=== PATIENT | female | born 1935 | race Caucasian/White ===

== ENCOUNTER 2017-03-16 10:04 | Inpatient (IN) | payer OTHER ==
[2017-03-16] VITALS (9 sets, daily range): BP systolic 103–124; BP diastolic 47–92
[~2017-03-16] VITALS: Ht 162.5 cm; Wt 56.2 kg
--- NOTE | ~2017-03-16 | PR ---
[place], [place] PROGRESS NOTE NAME: ERICA RIBEIRO UNIT #: [id number] ROOM: [facility] DOCTOR: SUZY CHIU MD,LUIS BIRTHDATE: [birth year] DOS: 03/17/2017 SUBJECTIVE: She has been noted comfortable at this time without any distress. She has been noted symptoms of shortness of breath and was given breathing treatments stated reduction and improvement in the respiratory symptoms. The oxygen supplementation has been currently provided by the Venturi mask. She has not been noted with any symptoms of chest pain or any abdominal pain. OBJECTIVE: VITAL SIGNS: Blood pressure noted as 122/65, heart rate of 95 this morning, respiratory rate 20 with normal temperature. HEENT: Shows no acute change. NECK: Supple. CARDIOVASCULAR: S1 and S2, audible. No added sounds. LUNGS: Noted decreased breath sounds in the right lung. The left lung was noted clear. Occasional wheezing was present. ABDOMEN: Soft, nontender. LABORATORY DATA: CBC today in the lab: WBC count 14.4, hemoglobin 9.8, hematocrit 32.0, platelet count 317,000. CMP of the patient on 03/17/2017 noted as glucose 120, normal BUN and creatinine, carbon dioxide 20. IMPRESSION: 1. The patient who has been currently noted with atrial fibrillation with rapid ventricular response. The patient improved. 2. Bronchospasm, the patient with wheezing that has been improving. PLAN OF TREATMENT: No changes in the plan of therapy at this time. Continuation of other previous treatment as in progress. Usual care, other supportive, plan of care and management and therapies as in progress. Usual care. Advanced lung cancer , the patient noted with progressive worsening. LUIS ALMONTE MD CM:PNNEREYDA [id number] LUIS CHIU MD 03/18/175 interface
--- NOTE | ~2017-03-16 | PR ---
[place], [place] PROGRESS NOTE NAME: ERICA RIBEIRO UNIT #: [id number] ROOM: [facility] DOCTOR: LUIS CHÁVEZ MD BIRTHDATE: [birth year] DOS: 03/18/2017 SUBJECTIVE: The patient was independently seen and examined with [id number] encounter. History and physical examination confirmed. Labs were reviewed. Decision made treatment were personally made. The note done by the medical physics professor was approved. The patient has been noted intermittent shortness of breath. The patient's fibrillation with rapid ventricular response, anxiety disorder. She was started on intravenous morphine yesterday because of distress. The patient has been noted progressive advanced malignancy. The patient off lung cancer with atelectasis of the right upper lobe. The patient has been noted comfortable at this time. Hospice Service was supposedly to be seen the patient. PHYSICAL EXAMINATION: VITAL SIGNS: The patient reviewed was noted essentially normal at this time. LUNGS: Auscultation of the chest was noted with decreased breath sounds in the right lung. There were no wheezing or crackles at this time. ABDOMEN: Soft, nontender. LABORATORY DATA: BMP was noted as normal. CBC was noted. WBC count 16.1, mild anemia. IMPRESSION: The patient with progressive lung cancer noted untreated, per the patient wishes with atrial fibrillation, rapid ventricular response. The patient with acute respiratory failure secondary to the above as well. PLAN OF TREATMENT: Recommend the patient for the hospitalist services. ASSESSMENT: Since, the patient opting for any treatment for the lung cancer, which has been known previously based on her wishes. Morphine sulfate should be used. The patient orally or intravenous. To keep the patient in respiratory distress and controlled. Other supportive therapy, plan to be continued previously in place. [place], [place] PROGRESS NOTE NAME: ERICA RIBEIRO UNIT #: [id number] ROOM: [facility] DOCTOR: LUIS CHÁVEZ MD BIRTHDATE: [birth year] LUIS ALMONTE MD CM:PNTRANS [id number] LUIS CHIU MD 03/19/17 0104 interface
--- NOTE | ~2017-03-16 | PR ---
[place], [place] PROGRESS NOTE NAME: ERICA RIBEIRO UNIT #: [id number] ROOM: [facility] DOCTOR: SUZY CHIU MD,LUIS BIRTHDATE: [birth year] DOS: 03/19/2017 ADDENDUM The patient was independently seen to and examined with [id number] encounter. The labs were reviewed. Physical examination performed. Changes in the treatment and recommendations, the patient was personally made for today's visit. The note done by the hospitalist medical director was approved. The patient has been noted with intermittent symptoms of shortness of breath, tachycardia, time receiving morphine intravenously for this patient. The oxygen supplementation continued. The tachycardia with atrial fibrillation and rapid ventricular response has been managed by the Cardiology Services. Chest auscultation noted with decreased breath sounds in the right lung. There were no wheezing or crackles heard. The abdomen is soft, flat, nontender. LABORATORY DATA: CBC that was done this morning showed WBC count was 16,000, mild anemia, platelet count. BMP: Glucose 161, BUN 30, creatinine was normal. Remaining electrolytes grossly normal. IMPRESSION: 1. The patient has progressively advanced lung cancer with progressive atelectasis of the right lung and bronchial obstruction was very likely. 2. Atrial fibrillation with rapid ventricular response or debility with acute hypoxic respiratory failure, leukocytosis. PLAN OF MANAGEMENT: Consideration for the hospitalist services. Continue maximizing medical ____ atrial fibrillation. Continue other supportive plan of therapy and care as in progress without any other changes. Her prognosis remains poor. LUIS ALMONTE MD CM:PNTRANS [phone] LUIS CHIU MD 03/20/17 0238 interface
--- NOTE | ~2017-03-16 | CON ---
[place], [place] REPORT OF CONSULTATION NAME: ERICA RIBEIRO UNIT #: [id number] ROOM: [facility] DOCTOR: SUZY CHIU MD,LUIS BIRTHDATE: [birth year] DOS: 03/16/2017 PULMONARY CONSULTATION EVALUATION REASON FOR CONSULTATION: Assess the patient's symptoms of shortness of breath. HISTORY OF PRESENT ILLNESS: An 81-year-old white female who has been known once the patient during hospitalization in the past. The patient has been brought to the hospital by the family members as the patient was noted with symptoms of increased shortness of breath. The shortness of breath has been noted to be increased for the patient gradually. She was also complaining of generalized fatigue. Somehow the symptoms, the patient has been gradually deteriorating in the past couple of months. The patient reported as severe nonproductive cough as well. There were symptoms of hemoptysis. Shortness of breath with minimal exertion at this time. She denies any symptoms of wheezing. She does complain of pain, which were described in the left anterior portion of the chest wall for the patient recently. The patient presented to the hospital Emergency Room for this patient and noted with atrial fibrillation with rapid ventricular response. The chest x-ray also noted abnormal for the patient on admission. She has been currently admitted to the Intensive Care Unit, the patient for further medical management getting intravenous Cardizem drip. REVIEW OF SYSTEMS: Limited for this patient, CONSTITUTIONAL: Denies symptoms of fatigue and tiredness without fever or chills. EYES: Denies any burning, redness, or tenderness. EARS, NOSE, THROAT SYMPTOMS: No sore throat, hoarseness, otalgia, postnasal drainage or epistaxis. CARDIOVASCULAR: Denies anginal pain, edema or pain of the lower extremities or palpitation at this time. GASTROINTESTINAL: Denies dysphagia, nausea, vomiting, diarrhea or abdominal pain. The patient has been noted with past history of foreign body in the esophagus, which was removed. She has been noted with some weight loss. GENITOURINARY SYMPTOMS: Denies dysuria, suprapubic pain, or hematuria. CENTRAL NERVOUS SYSTEM: Denies dizziness, headache, diplopia or syncopal episodes. She was noted some symptoms of dizziness. SKIN: Denies lesions or rashes. Denies any acute joint pain, redness, or tenderness. Remaining systems were reviewed and they were noted all negative. PAST MEDICAL HISTORY: 1. Hypothyroidism. 2. Bronchial asthma. 3. Gastroesophageal reflux. 4. Atrial fibrillation. 5. Foreign body esophagus. 6. Suspected malignancy for the patient in the right lung for this patient. History was not clear from me for this patient at this time, the patient stated that she had been admitted in [facility] about 3 months ago, she underwent extensive testing for this patient, but does not require any biopsy for this patient from the lung cancer done or not. [place], [place] REPORT OF CONSULTATION NAME: ERICA RIBEIRO UNIT #: [id number] ROOM: [facility] DOCTOR: SUZY CHIU MD,LUIS BIRTHDATE: [birth year] PAST SURGICAL HISTORY: Noted bilateral cataract extraction, lens implantation. The only history was known for this patient in 2015. SOCIAL HISTORY: The patient is , has 4 children. Denies history of alcohol use, illicit drug use. Occupation; occupational pulmonary exposure 20 chemicals, dust or others. FAMILY HISTORY: Both parents have been . MEDICATIONS: Current administered medication patient noted use of intravenous heparin, metoprolol succinate, Cardizem, intravenous drip, Levaquin, morphine and temazepam other p.r.n. medications administration. DRUG ALLERGIES: NOTED WITH ALLERGY TO THE ASPIRIN AND CAFFEINE. PHYSICAL EXAMINATION: GENERAL: An 81-year-old female who has been currently noted awake and alert without any distress. VITAL SIGNS: The patient's height was recorded by the nursing staff on current admission with height of 5 feet 4 inches, weight of 124 pounds, BMI 21. The patient's BMI in March of last admission as the patient was assessed, was noted at 23.5 at that time. The vital signs for the patient, which has been noted shows the heart rate of patient ranged between 150-178 fibrillation with rapid ventricular response, respiratory rate ranging between 24-30. The blood pressure of 124/92-109/65. Temperature was normal. Pulse oxygen saturation of the patient recorded on room air at rest was 90% on admission and currently noted on oxygen supplementation nasal cannula for this patient 3 liters as 97% saturation. HEENT: Head was atraumatic. Eyes nonicterus. NECK: Supple. CARDIOVASCULAR: S1, S2 is audible. LUNGS: The patient was noted with decreased breath sound on the right lung. The left lung was clear. There was no wheezing or crackles. ABDOMEN: Soft, flat, nontender. EXTREMITIES: Show no edema, clubbing, cyanosis. NEUROLOGIC: Cranial nerves 2-12 intact. No focal deficits. MUSCULOSKELETAL: Does not show any acute deformities. SKIN: Showed no abnormal lesions. LABORATORY DATA: CMP for this morning for this patient's glucose 154, BUN and creatinine was normal. Albumin 2.2. Lactic acid was 2.7 on admission. Follow up lactic acid 2.3. CBC for the patient 03/16/2017 WBC count 16.7, hemoglobin and hematocrit normal, platelet count was normal. The troponin for this patient, the first set for this patient was noted with 1.22. The second set of troponin for patient noted 2.39. The third set is 0.709. The chest x-ray of the patient only 1 view done in the Emergency Room shows volume loss with progressive area of atelectasis, large mass lesion, currently measured at 7-8 cm in size. [place], [place] REPORT OF CONSULTATION NAME: ERICA RIBEIRO UNIT #: [id number] ROOM: [facility] DOCTOR: SUZY CHIU MDLUIS BIRTHDATE: [birth year] IMPRESSION: 1. The patient who had been currently admitted to the hospital. The patient with current acute symptoms for the patient noted with suspected lung malignancy for the patient not show history of diagnosed of not with past history of pulmonary nodules noted 03/31/2016. CT scan of the chest as 2.7 x 1.9 cm has been significantly increased also resulting in atelectasis of the right upper lobe. 2. Atrial fibrillation with rapid ventricular response. 3. Tachypnea for this patient noted secondary to current atrial fibrillation with rapid ventricular response. 4. Leukocytosis whether the patient has postobstructive pneumonia or not the patient could be suspected. 5. The patient with suspected protein-calorie malnutrition. 6. History of hypothyroidism. Plan of management suggested. PLAN OF TREATMENT: Continue the patient on antibiotics for the patient with possibility postobstructive pneumonia. Maximize the medical management, atrial fibrillation with rapid ventricular response. The patient's code status has been noted DNR comfort care. Current malignancy, which has been suspected patient in March of last year for this patient 2015, currently appeared to be progressive and most likely increase in the size of the mass with endobronchial growth with atelectasis and extensive compression resulting in increased atelectasis of the left upper lobe and volume loss. Symptomatic management. The patient to keep comfortable. Other usual treatment therapy, plan of management and care. Usual treatment, other supportive therapy and care. Thanks for allowing me to participate in the care of this patient. LUIS ALMONTE MD CM:CONSTR:REPORT OF CONSULTATION 1529 03/17/17 1249 interface
--- NOTE | ~2017-03-16 | O ---
[place], [place] OPERATIVE NOTE NAME: ERICA RIBEIRO UNIT #: [id number] ROOM: [facility] DOCTOR: BEBETO GUERRA MD BIRTHDATE: [birth year] DOS: 03/19/2017 GASTROENDOSCOPIC REPORT. INDICATIONS: This is an 81-year-old female who has presented with multiple medical issues among which has been dysphagia. I have been asked for assessment of the patient regarding dilation therapy. The patient is deciding to refuse lung CA management. PAST MEDICAL HISTORY: Lung CA, cholelithiasis, gastroesophageal reflux, hiatal hernia, hypothyroidism, asthma. PAST SURGICAL HISTORY: Hysterectomy. SOCIAL HISTORY: Past smoker. Nonalcohol consumer. FAMILY HISTORY: Noncontributory. ALLERGIES: CAFFEINE and ASPIRIN. MEDICATIONS: List has been reviewed. PROCEDURE: Today's procedure part of investigation is panendoscopy plus balloon dilation of esophagus. PREMEDICATION: Versed and Diprivan. SCOPE: Olympus forward-viewing gastroscope Q10 video. REPORT: After putting the patient in the left lateral position and after application of lubricant to the scope, the scope was introduced; thereafter, under direct visualization, advanced through the length of esophagus without difficulty. Distal esophageal stricture was noticed. Balloon dilation to size 18 was undertaken. Hiatal hernia seen, which is approximately 3 cm. Gastric pouch was entered. Gastritis noticed. Duodenal bulb, second and third part within normal limits. The patient extubated, tolerated the procedure well. IMPRESSION: Distal esophageal stricture, status post balloon dilation to size 18. PLAN AND DISCUSSION: Liquid diet today and tomorrow including ice cream, milk shake, Ensure and Friday morning, we are starting on a soft mechanical diet. Thank you very much indeed. [place], [place] OPERATIVE NOTE NAME: ERICA RIBEIRO UNIT #: [id number] ROOM: [facility] DOCTOR: BEBETO GUERRA MD BIRTHDATE: [birth year] BEBETO GUERRA MD CM:OPRECORD:OPERATIVE NOTE [id number] BEBETO GUERRA MD 03/19/17 1450 interface
--- NOTE | ~2017-03-16 | CON ---
[place], [place] REPORT OF CONSULTATION NAME: ERICA RIBEIRO UNIT #: [id number] ROOM: [facility] DOCTOR: EUNICE ROWE MD BIRTHDATE: [birth year] DOS: 03/17/2017 CARDIOLOGY CONSULTATION. REASON FOR CONSULTATION: Atrial fibrillation with rapid ventricular response. HISTORY OF PRESENT ILLNESS: The patient is an 81-year-old woman who was admitted to the hospital because of severe dyspnea. She does have a history of lung cancer with a large and expanding right lung mass. She is aware of it and is refusing any diagnostic or therapeutic measures. She told me she specifically would not have any surgery, radiation or chemotherapy. She was initially seen by Cardiology on 04/01/2016 when she presented with atrial fibrillation and rapid ventricular response. An echocardiogram done at that time showed marked biatrial enlargement, but normal left ventricular size and function. She had a least moderate mitral insufficiency and moderate tricuspid insufficiency with mild pulmonary hypertension. She was treated with oral diltiazem and apixaban. The patient stopped taking both those medications shortly thereafter and did not come back to us for followup. She was subsequently admitted to hospital in [place] with lower extremity DVT. She was placed on Xarelto and has stayed on Xarelto since then, but has not resumed the diltiazem. I interviewed the patient with her daughter and niece in the room. The patient told me several times that her heart was healthy her lungs and she did not want us to bother with her heart. I explained to her that at least some of her dyspnea was due to the rapid heartbeats and she told me that she fully believes that the rapid heartbeat was caused by her breathing problems. I explained that treating her breathing problems would require both management of her lung disease and her cardiac disease, but she told me that she just wanted to do one thing at a time. The patient denies any chest pain, but she does feel that she is working very hard to breathe. She denies any productive cough and specifically denies hemoptysis. PAST MEDICAL HISTORY: Includes: 1. Right lung cancer. 2. Atrial fibrillation with rapid ventricular response, first documented in 12/2015. 3. Asthma. 4. Cholelithiasis. 5. Gastroesophageal reflux disease. 6. Hypothyroidism. 7. Status post hysterectomy. MEDICATIONS PRIOR TO ADMISSION: Albuterol by metered dose inhaler 2 puffs b.i.d., levothyroxine 75 mcg per day, omeprazole 20 mg per day, and Xarelto 15 mg daily. [place], [place] REPORT OF CONSULTATION NAME: ERICA RIBEIRO UNIT #: [id number] ROOM: [facility] DOCTOR: EUNICE ROWE MD BIRTHDATE: [birth year] ALLERGIES: The patient lists allergies to CAFFEINE and ASPIRIN. REVIEW OF SYSTEMS: The patient denies diplopia or loss of vision. She does admit to 15-20 pound weight loss. She denies fevers, chills or sweats. She denies nausea or vomiting. She does have a nonproductive cough. She denies focal weakness. She has never had a stroke. She denies any change in bowel or bladder habits. She denies bleeding from her bowels or urine. She denies any peripheral edema or leg cramps. She denies any new skin rashes. The remainder of the review of systems is negative except as noted above. SOCIAL HISTORY: The patient does not smoke. She does not consume alcohol. She lives alone. PHYSICAL EXAMINATION: GENERAL: The patient is a slender, elderly white female who is awake, alert and oriented. VITAL SIGNS: Pulse is 95 and irregularly irregular. Blood pressure is 122/65. She is afebrile. She weighs 56.2 kg and has a body mass index of 21.3. HEENT: Normocephalic, atraumatic. Extraocular muscles are intact. Sclerae are clear. Pupils are equal, round and react to light. Oral mucosa is moist. Tongue is midline. NECK: Supple. She has no jugular distention. Carotids are full. I heard no bruits. She had no neck or supraclavicular masses and no thyromegaly. LUNGS: Respirations are unlabored. Her chest has markedly decreased breath sounds with crackles on the right lung. She has expiratory prolongation and scattered wheezes on the left. She had no presacral edema or chest wall tenderness. CARDIOVASCULAR: Her heart had an irregularly irregular rhythm. There were no gallops. She has a grade 2/6 holosystolic murmur at the apex. No diastolic murmurs are present. ABDOMEN: Soft and normally active without masses, organomegaly or bruits. EXTREMITIES: Showed no edema. Peripheral pulses are palpable in the feet. LABORATORY DATA: I reviewed her electrocardiogram, which showed atrial fibrillation and flutter with a rapid ventricular response. She had poor precordial R-wave progression and nonspecific ST changes. IMPRESSIONS: 1. Atrial fibrillation with rapid ventricular response. 2. Expanding right lung mass, most likely due to cancer. 3. History of asthma. PLAN: The patient indicated to me that she did not want to have a lot of things done with her heart and in fact, did not want us to do anything. I told her that I thought that she should continue the Xarelto to prevent strokes and lower extremity clots and she said she would do that. I also told her that she probably should take the diltiazem to control her heart rate, but she did not commit to that management strategy. I think in the hospital we will do that in order to help her breathe better, but I am not sure that she will continue to [place], [place] REPORT OF CONSULTATION NAME: ERICA RIBEIRO UNIT #: [id number] ROOM: [facility] DOCTOR: JAE COSTELLO,EUNICE BIRTHDATE: [birth year] take the medications when she leaves this facility. Again, she was interviewed with her daughter and niece in the room. They heard her tell me that she did not want to have any cardiac workup or changes in management done. As noted, I will place her on Xarelto and oral diltiazem, but we will see if she accept those treatments. I thank Dr. Dior for asking our advice regarding the patient's care. EUNICE ROWE MD CM:CONSTR:REPORT OF CONSULTATION 1016 03/17/17 1051 interface
--- NOTE | ~2017-03-16 | PR ---
[place], [place] PROGRESS NOTE NAME: ERICA RIBEIRO UNIT #: [id number] ROOM: [facility] DOCTOR: SELENA MONCADA DO BIRTHDATE: [birth year] DOS: 03/17/2017 SUBJECTIVE: The patient was seen and evaluated today. The patient is noted to be comfortable at this time without any distress. The patient has noted symptoms of respiratory. The patient has been noted to have symptoms of shortness of breath and was given breathing treatment, which improved and helped with reduction of such and improvement of respiratory symptoms. The patient denies any chest pain or abdominal pain. OBJECTIVE: VITAL SIGNS: Temperature 98.9, pulse 95, respiratory rate 22, blood pressure 104/59, pulse ox is 98% on Venturi mask of 50% O2 flow rate. HEENT: Shows no changes. NECK: Supple. CARDIOVASCULAR: S1, S2 audible. No added sound. LUNGS: Decreased breath sound in the right lung. Left lung was noted to be clear. Occasional wheezing present. No rhonchi or rales noted. Mild cough noted. ABDOMEN: Soft, nontender. LABORATORY DATA: CBC: White cell count of 16.1, hemoglobin 10.1, platelet count 299. Chemistry, 140 sodium, BUN 24, creatinine 0.69, carbon dioxide of 21. ASSESSMENT: 1. The patient having atrial fibrillation with rapid ventricular rate. The patient is stable. 2. Bronchospasm, mild wheezing noted, which has been improving. PLAN OF TREATMENT: 1. No changes in plan of treatment at this time. 2. Supportive care. SELENA MONCADA DO [place], [place] PROGRESS NOTE NAME: ERICA RIBEIRO UNIT #: [id number] ROOM: [facility] DOCTOR: SELENA MONCADA DO BIRTHDATE: [birth year] LUIS ALMONTE MD CM:SHA [id number] SELENA MONCADA DO 03/18/17 1102 interface
--- NOTE | ~2017-03-16 | PR ---
[place], [place] PROGRESS NOTE NAME: ERICA RIBEIRO UNIT #: [id number] ROOM: [facility] DOCTOR: SELENA MONCADA DO BIRTHDATE: [birth year] DOS: 03/19/2017 SUBJECTIVE: The patient was seen and evaluated today with Dr. Almonte. The patient is noted to be comfortably sitting at the bedside. The patient takes [place] help for generalized pain and aches. The patient denies any complaints or concerns at this time. OBJECTIVE: VITAL SIGNS: Temperature 97.7, pulse 88, respiratory rate 20, blood pressure 101/46, pulse ox of 98% on 50% Venturi mask. HEENT: Shows no changes. NECK: Supple. CARDIOVASCULAR: S1, S2 audible. No added heart sounds. LUNGS: Decreased breath sounds at the bases. No wheezing or crackles noted at this time. ABDOMEN: Soft, nontender. LABORATORY DATA: Labs done on 03/19/2017, CBC: White cell count of 16, hemoglobin of 10, platelet of 274. BMP is noted normal. ASSESSMENT: 1. Progressive lung cancer. 2. Atrial fibrillation with rapid ventricular response. 3. Acute respiratory failure secondary to lung cancer. 4. Dysphagia. PLAN: 1. Hospice and palliative care options versus comfort care options. 2. No further changes in medication per pulmonary perspective. 3. Cardizem IV was switched to Cardizem p.o. for atrial fibrillation. 4. Supportive care. SELENA MONCADA DO [place], [place] PROGRESS NOTE NAME: ERICA RIBEIRO UNIT #: [id number] ROOM: [facility] DOCTOR: SELENA MONCADA DO BIRTHDATE: [birth year] LUIS ALMONTE MD CM:SHA [phone] SELENA MONCADA DO 03/19/17939 interface
[~2017-03-16 10:04] MED LIST: DILTIAZEM CD240 MG PO; FLOVENT HFA12 GM IH; OMEPRAZOLE D/R20 MG PO; SYNTHROID,LEVO75 MCG PO; XARELTO20 M1 PO
[2017-03-16 10:36] LABS: BASO % 0.2 % (0.0-1.0); EOS % 0.1 % (1.0-4.0); HEMATOCRIT 39.6 % (37.0-47.0); HEMOGLOBIN 12.3 g/dl (12.0-16.0); LYMPH % 6.1 % (27.0-41.0); MEAN CORPUSCULAR HGB 25.2 pg (27.0-31.0); MEAN CORPUSCULAR HGB CONC 31.1 g/dl (33.0-37.0); MEAN PLATELET VOLUME 9.3 fl (9.6-12.3); MONO # 1.3 10*3/uL (0.1-1.0); NEUT # 14.2 10*3/uL (2.3-7.9); NEUT % 85.1 % (47.0-73.0); PLATELET COUNT AUTOMATED 395 10*3/uL (130-400); RED BLOOD COUNT 4.89 10*6/uL (4.10-5.10); RED CELL DISTRI WIDTH 19.7 % (0-14.5); WHITE BLOOD COUNT 16.7 10*3/uL (4.8-10.8)
[2017-03-16 10:40] LABS: ABG BASE EXCESS -2.4 mmol/L (-2.0-2.0); ABG HCO3 19.7 mmol/l (22-26); ABG O2 SATURATION 94.7 % (95-97); ARTERIAL BLOOD GAS PH 7.476 (7.35-7.45); ARTERIAL BLOOD GAS PO2 72.5 mmHg (80-90)
--- NOTE | 2017-03-16 10:47 | NUR ---
PATIENT IN POSITION OF COMFORT, FAMILY PRESENT IN THE ROOM WITH THE PATIENT, CONTINUING TO MONITOR THE PATIENT. PRITI AYALA
--- NOTE | 2017-03-16 10:47 | NUR ---
BLOOD GASES OBTAINED BY DR. ROMO. JAMIE,RN
[2017-03-16 10:55] LABS: ALBUMIN 2.2 gm/dl (3.1-4.5); ALKALINE PHOSPHATASE 243 U/L (45-117); BUN 23 mg/dl (7-24); CHLORIDE 105 mmol/L (98-107); CREATININE 0.87 mg/dL (0.55-1.02); POTASSIUM 4.6 mmol/L (3.5-5.1); SGOT/AST 38 IU/L (3-35); SGPT/ALT 29 U/L (12-78); SODIUM 139 mmol/L (136-145); TOTAL PROTEIN 7.1 gm/dL (6.4-8.2)
--- NOTE | 2017-03-16 11:09 | NUR ---
PER PATIENT SHE IS A DNR IN [place] AND DOES HAVE A LIVING WILL, DR. ROMO INTO TALK TO THE PATIENT OVER THIS ISSUE AT THIS TIME. PRITI AYALA
--- NOTE | 2017-03-16 11:14 | NUR ---
ATTEMPTED TO GET URINE AND WAS UNSUCCESSFUL THE PATIENT STATES THAT SHE IS NOT ABLE TO GO AT THIS TIME, PATIENT WAS PLACED ON THE BED DANG AND TAKEN OFF THE BED DANG. PRITI AYALA
--- NOTE | 2017-03-16 11:17 | NUR ---
PATIENT STATES THAT SHE HAS HAD A MILD IMPROVEMENT IN HER BREATHING BUT STILL FEELS LIKE SHE IS WORKING HARD TO BREATH, RESPIRATIONS ARE INCREASED BUT NOT LABORED, SKIN IS PALE, WARM, AND DRY, CALL LIGHT IN REACH OF THE PATIENT, CONTINUING TO MONITOR THE PATIENT. PRITI AYALA
--- NOTE | 2017-03-16 11:45 | NUR ---
A 81, admitted to [facility], under the services of BEATRIZ Eddy DO with a diagnosis of ATRIAL FIBRILLATION W/RVR. Chief complaint is SHORTNESS OF BREATH. Patient arrived via stretcher from ER. Monitor applied. Initial assessment completed. Vital signs taken and recorded. BEATRIZ EDDY DO notified of admission to the unit. Orders received. See assessment for past medical history, medications and allergies. Patient and/or family oriented to unit. [facility] visitation policy reviewed. Clothing/patient valuable form completed. COLLIN ALLISON
--- NOTE | 2017-03-16 11:56 | NUR ---
PATIENT TAKEN TO ROOM [facility] 12-PLACED IN BED AND ON THE MONITOR, CARE TRANSFERRED TO JUAN MCCRAY RN AND BRIE JAMES RN. PRITI AYALA
[2017-03-16] MEDS ORDERED: SYNTHROID,LEVO75 MCG PO (12:07)
[2017-03-16] MEDS ORDERED: XARE15TA PO (12:08)
[2017-03-16] MEDS ORDERED: PROVENTIL HFA6.7 GM INH (12:14)
--- NOTE | 2017-03-16 12:14 | NUR ---
MED LIST UP TO DATE AFTER SPEAKING WITH PATIENT AND ASKING HER ABOUT EVERYTHING ON MED CLAIM HISTORY
--- NOTE | 2017-03-16 14:40 | NUR ---
NOTIFIED OF CRITICAL TROP RESULT OF 0.709 AND CRITICAL LACTIC ACID OF 2.3. STATED TO NOTIFY .
--- NOTE | 2017-03-16 16:35 | NUR ---
DR. GUERRA NOTIFIED OF CONSULT.
--- NOTE | 2017-03-16 16:39 | NUR ---
DR. ANDERS NOTIFIED OF PULSE OX 87% ON 3L NASAL CANNULA. PLACED ON VENTURI MASK 35% AND PULSE OX INCREASED TO 91%.
--- NOTE | 2017-03-16 20:30 | NUR ---
193 RESPIRATORY HAD PLACED PT ON 4L NC. PULSE OX 87%.PLACED BACK ON VENTURI MASK AT 35%. STAYING AT 88%. VENTURI MASK INCREASED TO 40%. PULSE OX UP TO 91% AFTER THIS. CARDIZEM GTT CONT AT 15MG. HEPARIN GTT MAINTAINED. IV FLUIDS CONT. NO DISTRESS NOTED. NO C/O'S VOICED. MONITOR REMAINS A-FIB.
--- NOTE | 2017-03-16 22:13 | NUR ---
RESTING IN BED WITHOUT C/O'S.
[2017-03-17] VITALS (10 sets, daily range): BP systolic 100–148; BP diastolic 52–83
--- NOTE | 2017-03-17 00:17 | NUR ---
03/16/17 2300 TRANSFERRED TO CCU#3 VIA BED PER PT REQUEST FOR ROOM. ORIENTED TO NEW ROOM 0000 RESTING IN BED WITH EYES CLOSED. APPEARS TO BE SLEEPING. HOB ELEVATED. SIDE RAILS UP XS 2. CALL LIGHT IN REACH. ALL LINES SECURE.
--- NOTE | 2017-03-17 04:14 | NUR ---
CARDIZEM GTT TITRATED DOWN TO 5MG FOR HR IN THE 70'S.
[2017-03-17 04:50] LABS: BASO % 0.1 % (0.0-1.0); LYMPH # 0.7 10*3/uL (1.3-4.4); LYMPH % 4.8 % (27.0-41.0); MEAN CELL VOLUME 81.6 fl (81.0-99.0); MEAN CORPUSCULAR HGB CONC 30.6 g/dl (33.0-37.0); MEAN PLATELET VOLUME 9.3 fl (9.6-12.3); MONO % 7.2 % (3.0-9.0); NEUT # 12.6 10*3/uL (2.3-7.9); NEUT % 87.4 % (47.0-73.0); PLATELET COUNT AUTOMATED 317 10*3/uL (130-400); RED BLOOD COUNT 3.92 10*6/uL (4.10-5.10); RED CELL DISTRI WIDTH 19.1 % (0-14.5); WHITE BLOOD COUNT 14.4 10*3/uL (4.8-10.8)
[2017-03-17 05:07] LABS: ALBUMIN 1.8 gm/dl (3.1-4.5); ALKALINE PHOSPHATASE 218 U/L (45-117); BUN 20 mg/dl (7-24); CHLORIDE 112 mmol/L (98-107); CHOLESTEROL 187 mg/dL (<200); CREATININE 0.56 mg/dL (0.55-1.02); HDL CHOLESTEROL 29 mg/dl (40-60); LDL CHOLESTEROL 122 mg/dL (9-159); MAGNESIUM 2.1 mg/dL (1.5-2.1); POTASSIUM 4.5 mmol/L (3.5-5.1); SGOT/AST 40 IU/L (3-35); SGPT/ALT 30 U/L (12-78); SODIUM 143 mmol/L (136-145); TOTAL PROTEIN 5.8 gm/dL (6.4-8.2); TRIGLYCERIDES 180 mg/dl (<150); VLDL CHOLESTEROL 36 mg/dL (6-40)
[2017-03-17 05:08] LABS: HEMOGLOBIN 9.8 g/dl (12.0-16.0)
[2017-03-17 05:09] LABS: FREE T4 1.22 ng/dl (0.76-1.46)
--- NOTE | 2017-03-17 06:10 | NUR ---
0530 UP TO BSC WITH 1 ASSIST TO VOID. VIVEROS. BACK TO BED WITH HOB ELEVATED. PULSE OX 95% ON VENTURI MASK. HEPARIN, CARDIZEM AND NSS INFUSING WELL. CALL LIGHT IN REACH. CONDITION GUARDED.
[2017-03-17 07:36] LABS: VITAMIN D, 25-HYDROXY 40.8 ng/mL (30-100)
--- NOTE | 2017-03-17 07:54 | NUR ---
PT C/O FEELING SHORT OF BREATH. POX 95% ON 40% O2 VIA VENTURI MASK. EXP WHEEZE NOTED. I NOTIFIED RESPIRATORY THERAPY THAT SHE NEEDS AEROSOL TREATMENT. WILL CONTINUE TO MONITOR.
--- NOTE | 2017-03-17 08:37 | NUR ---
PT STATED THE AEROSOL TREATMENT WAS EFFECTIVE IN EASING HER SHORTNESS OF BREATH.
--- NOTE | 2017-03-17 09:44 | NUR ---
DR ROWE IN TO SEE PT.
--- NOTE | 2017-03-17 10:42 | NUR ---
HEPARIN GTT DC'D PER PARVIN ORDER.
[2017-03-17 10:54] LABS: BILIRUBIN NEGATIVE (NEGATIVE); BLOOD NEGATIVE (NEGATIVE); CLARITY SL CLOUDY (CLEAR); COLOR YELLOW (YELLOW); GLUCOSE NEGATIVE (NEGATIVE); KETONE TRACE (NEGATIVE); LEUKO ESTERASE NEGATIVE (NEGATIVE); NITRITE NEGATIVE (NEGATIVE); PH 5.5 (5.0-9.0); SPECIFIC GRAVITY >= 1.030 (1.005-1.030); UROBILINOGEN 0.2 E.U./dl (0.2-1.0)
[2017-03-17 11:03] LABS: BACTERIA 1+; MUCOUS 2+
--- NOTE | 2017-03-17 11:19 | NUR ---
DASHAWN GTT DC'D PER 'S ORDER.
--- NOTE | 2017-03-17 14:37 | NUR ---
DR ROWE MADE AWARE OF PT'S HEART RATE INCREASING BACK UP TO 110-120. EXTRA DOSE OF CARDIZEM 30MG PO ORDERED.
--- NOTE | 2017-03-17 14:45 | NUR ---
PT C/O SEVERE SHORTNESS OF BREATH. POX 89-91% ON 40% O2 VIA VENTURI MASK. WHEEZES AND FINE RALES NOTED. HEART RATE [address] ROWE NOTIFIED AND NEW ORDER RECEIVED FOR LASIX 40MG IV.
--- NOTE | 2017-03-17 15:22 | NUR ---
PT CONTINUES TO C/O SEVERE SHORTNESS OF BREATH. POX 89-92% ON 40% VENTURI MASK. WHEEZES AND RALES NOTED IN LUNG GUADARRAMA. DR COTTO AND DR WELDON IN THE HOSPITAL AND CAME BACK TO ASSESS PT.
--- NOTE | 2017-03-17 15:34 | NUR ---
PHYSICAL THERAPY PAtient medically unable to participate this date. Nurse advised no PT as well. will check on status at a later date. Thank ou for this referral. renata Fagan,PT
--- NOTE | 2017-03-17 15:36 | NUR ---
Patient not able to participate in Occupational Therapy evaluation this date as per nursing she is not medically stable. OTR will recheck at a later date. Thank you for this referral. Deepthi Evans OTR/L
--- NOTE | 2017-03-17 16:30 | NUR ---
PT BREATHING EASIER AT THIS TIME AND STATES SHE IS NOT NEARLY SHORT OF BREATH SHE WAS. PT HAS HAD 700CC OF URINE OUT SINCE BEING GIVEN LASIX IV. PT'S HEART RATE DOWN TO 90'S ALSO SINCE BEING GIVEN EXTRA DOSE OF CARDIZEM 30MG IV. AWAITING ABG RESULTS. POX 91% ON 40% VENTURI MASK.
[2017-03-17 16:44] LABS: ABG BASE EXCESS -2.9 mmol/L (-2.0-2.0); ABG HCO3 20.1 mmol/l (22-26); ABG O2 SATURATION 91.6 % (95-97); ARTERIAL BLOOD GAS PCO2 29.3 mmHg (35-45); ARTERIAL BLOOD GAS PH 7.446 (7.35-7.45)
--- NOTE | 2017-03-17 16:54 | NUR ---
RESPIRATORY THERAPY CONNECTED PT TO BIPAP MACHINE BUT SHE WAS UNABLE TO TOLERATE IT AND ONLY WORE IT FOR A FEW MINUTES. DR ALMONTE MADE AWARE.
--- NOTE | 2017-03-17 16:56 | NUR ---
I SPOKE WITH DR ALMONTE AND MADE HIM AWARE OF ABG RESULTS AND NOTIFIED HIM PT IS UNABLE AND UNWILLING TO CONTINUE TRYING BIPAP. ORDER TO DC BIPAP.
--- NOTE | 2017-03-17 17:11 | NUR ---
I CLARIFIED WITH PT THAT SHE DOES NOT WANT TO BE INTUBATED OR HAVE ANY HEROIC MEASURES DONE AND SHE STATED THAT WAS CORRECT AND SHE DOES NOT WANT TO BE INTUBATED.
--- NOTE | 2017-03-17 17:12 | NUR ---
I NOTIFIED DR ROWE THAT PT'S HEART RATE HAS GONE BACK UP TO THE 140'S AND REMAINS ATRIAL FIB. ORDER PUT IN TO RESTART CARDIZEM GTT.
--- NOTE | 2017-03-17 17:36 | NUR ---
PT STUCK X 2 FOR AN ABG. UNATTAINABLE. NURSE GOT ABG AND SENT TO LAB.
--- NOTE | 2017-03-17 17:39 | NUR ---
PT TRIED ON BIPAP. SHE ONLY LASTED 30 SECONDS. PT DID NOT CARE FOR IT. PT STATES SHE IS FEELING BETTER AFTER LASIX AND BREATHING TX. PT LEFT ON 40% VENTI MASK. SPO2 IN THE LOW 90'S. BIPAP ON STANDBY AT BEDSIDE.
--- NOTE | 2017-03-17 17:40 | NUR ---
CARDIAZEM GTT RESTARTED AT THIS TIME DUE TO PATIENTS HEART RATE BACK UP TO 120-140 ATRIAL FIB.
--- NOTE | 2017-03-17 18:03 | NUR ---
SCD MACHINE APPLIED TO BILATERAL LOWER EXTREMITIES.
--- NOTE | 2017-03-17 18:28 | NUR ---
PT'S HEART RATE DOWN TO 90-110 ATRIAL FIB AT THIS TIME SINCE CARDIAZEM GTT WAS RESTARTED AT 10MG/HR.
--- NOTE | 2017-03-17 19:20 | NUR ---
PT INCREASED TO 50% VENTURI MASK DUE TO POX OF ONLY 84% ON 40% VENTURI. WILL CONTINUE TO MONITOR.
--- NOTE | 2017-03-17 19:48 | NUR ---
PT'S HEART RATE 100-120'S ATRIAL FIB CONTINUES. CARDIAZEM GTT INCREASED TO 15MG/HR TO KEEP HR <100. POX 98% ON 50% VENTURI MASK.
--- NOTE | 2017-03-17 21:09 | NUR ---
Pt requested something to help her sleep and was medicated with restoril 15mg po. Pt's heart rate down to 100-110 since cardiazem gtt increased to 15mg/hr. will continue to monitor.
--- NOTE | 2017-03-17 22:00 | NUR ---
PT REMAINS AWAKE STATING THE RESTORIL DID NOT EVEN MAKE HER SLEEPY. HEART RATE NOW 90-110 BPM WITH CARDIAZEM GTT AT 15MG/HR. POX REMAINS LOW ONLY UP TO 91% ON 50% VENTURI MASK. WILL CONTINUE TO MONITOR.
--- NOTE | 2017-03-17 22:59 | NUR ---
24 HR chart check completed.
--- NOTE | 2017-03-17 23:59 | NUR ---
PATIENT IS ALERT AND ORIENTED. SHE HAS REMOVED OXYGEN AND AND PULLED IV SITE OUT OF HER RIGHT WRIST. PATIENT IS REFUSING OXYGEN AND REFUSING A NEW IV SITE AT THIS TIME. IT WAS EXPLAINED TO PATIENT THAT SHE NEEDS OXYGEN TO BREATH AND NOT HAVING OXYGEN COULD RESULT IN . SHE STATES SHE IS GOING TO ANYWAY WITH OR WITHOUT THE OXYGEN. DR. SALEEM HAS BEEN NOTIFIED AND STATES HE WILL BE UP TO TALK TO PATIENT.
[2017-03-18] VITALS (8 sets, daily range): BP systolic 90–125; BP diastolic 40–74
--- NOTE | 2017-03-18 00:26 | NUR ---
SPO2 77% ON ROOM AIR. PATIENT CONTINUES TO REFUSE OXYGEN.
--- NOTE | 2017-03-18 00:30 | NUR ---
DR. SALEEM IN WITH PATIENT AT THIS TIME.
--- NOTE | 2017-03-18 00:47 | NUR ---
HALDOL GIVEN ORDERED.
--- NOTE | 2017-03-18 01:05 | NUR ---
50% VENTURI APPLIED 15L.
--- NOTE | 2017-03-18 01:40 | NUR ---
PATIENT ASLEEP. RESPIRATIONS EASY AND UNLABORED. O2 INTACT. WILL CONTINUE TO MONITOR FOR CONFUSION/AGITATION.
[2017-03-18 04:27] LABS: HEMATOCRIT 32.9 % (37.0-47.0); HEMOGLOBIN 10.4 g/dl (12.0-16.0); MEAN CELL VOLUME 81.6 fl (81.0-99.0); MEAN CORPUSCULAR HGB 25.8 pg (27.0-31.0); MEAN CORPUSCULAR HGB CONC 31.6 g/dl (33.0-37.0); PLATELET COUNT AUTOMATED 299 10*3/uL (130-400); RED BLOOD COUNT 4.03 10*6/uL (4.10-5.10); RED CELL DISTRI WIDTH 19.2 % (0-14.5); WHITE BLOOD COUNT 16.1 10*3/uL (4.8-10.8)
[2017-03-18 04:54] LABS: BUN 24 mg/dl (7-24); CHLORIDE 109 mmol/L (98-107); CREATININE 0.69 mg/dL (0.55-1.02); POTASSIUM 4.1 mmol/L (3.5-5.1); SODIUM 140 mmol/L (136-145)
[2017-03-18 05:27] LABS: PLATELET SUFFICIENCY NORMAL (NORMAL); TOTAL CELLS COUNTED 100 #CELLS
--- NOTE | 2017-03-18 09:11 | NUR ---
PHYSICAL THERAPY PAtient with nursing and with breakfast at this time. Thank you for this referral. Vanessa Mcfarland,PT
--- NOTE | 2017-03-18 10:49 | NUR ---
PHYSICAL THERAPY PAtient adamantly refuses PT this date, she reports being too fatigued and having trouble breathing. Thank you for this referral. Vanessa Mcfarland,PT
--- NOTE | 2017-03-18 12:01 | NUR ---
Late note: conference planner in to see patient yesterday 03/17/17, daughter at bedside. Daughter and patient requested a referral be made to [facility] in [place] for rehab. Explained to both that patient will need to work with both PT and OT for evaluations before patient can be authorized to go. Daughter understood, patient seemed a little confused. Reinforced conversation. Today, patient refused therapy. Will follow.
--- NOTE | 2017-03-18 14:12 | NUR ---
PT MEDICATED WITH NORCO 1 TAB FOR C/O GENERALIZED ACHES AND PAINS
--- NOTE | 2017-03-18 14:40 | NUR ---
PT HAS BEEN RESTING QUIETLY WITH EYES CLOSED ON HER SIDE SINCE BEING MEDICATED WITH NORCO FOR GENERALIZED BODY ACHES AND PAINS.
--- NOTE | 2017-03-18 19:30 | NUR ---
MEDICATED WITH NORCO PER PRN ORDER FOR C/O PAIN.
[2017-03-19] VITALS (8 sets, daily range): BP systolic 91–134; BP diastolic 46–79
[2017-03-19 05:01] LABS: HEMATOCRIT 31.5 % (37.0-47.0); MEAN CELL VOLUME 81.2 fl (81.0-99.0); MEAN CORPUSCULAR HGB 25.8 pg (27.0-31.0); MEAN CORPUSCULAR HGB CONC 31.7 g/dl (33.0-37.0); MEAN PLATELET VOLUME 9.1 fl (9.6-12.3); PLATELET COUNT AUTOMATED 274 10*3/uL (130-400); RED BLOOD COUNT 3.88 10*6/uL (4.10-5.10); RED CELL DISTRI WIDTH 19.6 % (0-14.5)
[2017-03-19 05:32] LABS: BUN 30 mg/dl (7-24); CHLORIDE 109 mmol/L (98-107); CREATININE 0.68 mg/dL (0.55-1.02); POTASSIUM 4.2 mmol/L (3.5-5.1); SODIUM 141 mmol/L (136-145)
[2017-03-19 05:35] LABS: PLATELET SUFFICIENCY NORMAL (NORMAL); TOTAL CELLS COUNTED 100 #CELLS
--- NOTE | 2017-03-19 09:14 | NUR ---
buyer planner, occupational therapist and physical therapist in to see patient to encourage working with therapies for precert to [facility] in [facility]. Patient is refusing all therapies. Patient's insurance ([id number]) will require a precert with both therapies. Typical precert for this company is 3 to 4 days. Spoke with daughter in law and explained. She stated patient is very stubborn and if she does therapy for anyone it would be hospital staff over family encouragment. Will discuss other options with family.
--- NOTE | 2017-03-19 09:26 | NUR ---
PHYSICAL THERAPY PAtient adamantly refuses PT services. Vanessasveta Mcfarland,PT
--- NOTE | 2017-03-19 09:30 | NUR ---
Contacted [facility] and faxed referral. [facility] currently has a nurse here at the hospital and will notify her of this referral.
--- NOTE | 2017-03-19 09:43 | NUR ---
MEDICATED WITH MORPHINE 2MG IV FOR C/O SOB PER DR ALMONTE'S RECOMMENDATIONS. NPO FOR EGD TODAY. DID MEDICATE WITH CARDIZEM THIS AM WITH SMALL SIP OF WATER R/T AFIB.
--- NOTE | 2017-03-19 11:04 | NUR ---
Patient approached for Occupational Therapy evaluation this date, but patient was on venturi mask in ICCU and did not feel well enough to participate in OT this date. environmental planner spoke with patient and she did not want OT /PT eval to day. OTR will attempt at a later date as appropriate. Thank you for this referral. Deepthi Evans OTR/L
--- NOTE | 2017-03-19 11:46 | NUR ---
TAKEN TO OR FOR DILATATION OF THE ESOPHAGUS WITH DR GUERRA. SON WAS AT BEDSIDE AT THIS TIME. NO C/0 ANY AND STABLE.
--- NOTE | 2017-03-19 11:53 | NUR ---
Patient continues to refuse all therapies at this time, unable to make referral to [facility].
--- NOTE | 2017-03-19 13:46 | NUR ---
RETURNED FROM OR STABLE. ORDERS REVIEWED. NOTIFIED DR SIMONS THAT SHE CAN BE DC TO INPATIENT HOSPICE.
[2017-03-19] MEDS ORDERED: DILTIAZEM CD240 MG PO (13:52)
[2017-03-19] MEDS ORDERED: TOPROL XL50 M1 PO (13:52)
--- NOTE | 2017-03-19 14:00 | NUR ---
DC TO INPATIENT HOSPICE WITH [facility].
== END 2017-03-19 14:00 | disposition hospice, home (50) | DRG 871 ==
LOC: ED 10:04 → ICCU 11:12 → EDHOLD 11:12 → ICCU 11:24
PROVIDERS: Emergency Medicine; Family Medicine; Internal Medicine; Internal Medicine Critical Care Medicine; ADMIT Internal Medicine
PROC: 0D738ZZ Dilation of Lower Esophagus, Via Natural or Artificial Opening Endoscopic (ICD-10-PCS; principal; 2017-03-19)
DX: A41.9 Sepsis, unspecified organism (principal); J18.1 Lobar pneumonia, unspecified organism; J96.01 Acute respiratory failure with hypoxia; E43 Unspecified severe protein-calorie malnutrition; I48.91 Unspecified atrial fibrillation; I27.2 Other secondary pulmonary hypertension; C34.91 Malignant neoplasm of unspecified part of right bronchus or lung; K22.2 Esophageal obstruction; R65.20 Severe sepsis without septic shock; K29.70 Gastritis, unspecified, without bleeding; K44.9 Diaphragmatic hernia without obstruction or gangrene; R74.8 Abnormal levels of other serum enzymes; E03.9 Hypothyroidism, unspecified; J45.909 Unspecified asthma, uncomplicated; K21.0 Gastro-esophageal reflux disease with esophagitis; E53.8 Deficiency of other specified B group vitamins; Z96.1 Presence of intraocular lens; Z66 Do not resuscitate; Z51.5 Encounter for palliative care; Z88.6 Allergy status to analgesic agent; Z88.8 Allergy status to other drugs, medicaments and biological substances; Z82.49 Family history of ischemic heart disease and other diseases of the circulatory system; Z82.5 Family history of asthma and other chronic lower respiratory diseases; Z90.710 Acquired absence of both cervix and uterus; Z79.899 Other long term (current) drug therapy; Z86.718 Personal history of other venous thrombosis and embolism; Z79.01 Long term (current) use of anticoagulants; Z98.42 Cataract extraction status, left eye; Z98.41 Cataract extraction status, right eye; Z68.21 Body mass index [BMI] 21.0-21.9, adult

== ENCOUNTER 2017-03-19 14:01 | Inpatient (IN) | payer OTHER ==
[~2017-03-19] VITALS: Ht 160 cm; Wt 56.2 kg
[~2017-03-19 14:01] MED LIST changes: +PROVENTIL HFA6.7 GM INH; +TOPROL XL50 M1 PO; +XARE15TA PO
[2017-03-19 16:00] VITALS: BP 128/76
[2017-03-19 20:00] VITALS: BP 110/57
[2017-03-20] VITALS: BP 112/52
[2017-03-20 08:00] VITALS: BP 137/75
[2017-03-20 12:00] VITALS: BP 118/67
[2017-03-20 16:00] VITALS: BP 104/50
[2017-03-20 20:00] VITALS: BP 123/78
[2017-03-21] VITALS: BP 112/72
[2017-03-21 08:00] VITALS: BP 127/61
[2017-03-21 12:00] VITALS: BP 117/56
== END 2017-03-21 15:26 | disposition expired | DRG 871 ==
LOC: 4E 14:01 → ICCU 14:01 → 4E 16:18
PROVIDERS: ADMIT Internal Medicine
DX: A41.9 Sepsis, unspecified organism (principal); J96.01 Acute respiratory failure with hypoxia; E43 Unspecified severe protein-calorie malnutrition; E87.2 Acidosis; J18.9 Pneumonia, unspecified organism; E87.3 Alkalosis; C34.91 Malignant neoplasm of unspecified part of right bronchus or lung; I48.91 Unspecified atrial fibrillation; R13.10 Dysphagia, unspecified; R65.20 Severe sepsis without septic shock; Z51.5 Encounter for palliative care; R74.8 Abnormal levels of other serum enzymes; D72.810 Lymphocytopenia; E53.8 Deficiency of other specified B group vitamins; E03.9 Hypothyroidism, unspecified; K21.9 Gastro-esophageal reflux disease without esophagitis; J45.909 Unspecified asthma, uncomplicated; Z90.710 Acquired absence of both cervix and uterus; Z88.6 Allergy status to analgesic agent; Z88.8 Allergy status to other drugs, medicaments and biological substances; Z82.5 Family history of asthma and other chronic lower respiratory diseases; Z79.899 Other long term (current) drug therapy; Z68.21 Body mass index [BMI] 21.0-21.9, adult